=== PATIENT | male | born 1965 | race Two or more races ===

== ENCOUNTER 2021-06-04 07:38 | Day surgery (SDC) | payer OTHER ==
[2021-05-28 14:22] VITALS: BMI 25.0
[2021-06-04] MEDS ORDERED: LIDOCAINE HCL/PF 2% SDV 5ML VIAL ONE (07:44)
[2021-06-04] MEDS ORDERED: PROPOFOL 20 ML ONE ×4 (07:45)
[2021-06-04 08:06] VITALS: TEMP 97.6
[2021-06-04 09:15] VITALS: BP 117/71; PULSE 68
== END 2021-06-04 09:30 | disposition home or self-care (01) ==
LOC: FASU-ENDO 07:38
PROVIDERS: ATTEND Internal Medicine Gastroenterology
PROC: 0DJD8ZZ Inspection of Lower Intestinal Tract, Via Natural or Artificial Opening Endoscopic (ICD-10-PCS; principal; 2021-06-04 08:19)
DX: Z12.11 Encounter for screening for malignant neoplasm of colon (principal); K57.30 Diverticulosis of large intestine without perforation or abscess without bleeding